=== PATIENT | male | born 1965 | race Caucasian/White ===

== ENCOUNTER 2017-08-04 09:03 | Day surgery (SDC) | payer BC ==
[~2017-08-04] VITALS: Ht 182.9 cm; Wt 94.0 kg
[~2017-08-04 09:03] MED LIST: CIPR500 PO; DICY20 PO; METR500 PO; OMEP20ER PO
[2017-08-04] MEDS ORDERED: Aciphex20 MG (09:18)
[2017-08-04] MEDS ORDERED: Imitrex100 MG (09:18)
== END 2017-08-04 10:57 | disposition home or self-care (01) ==
LOC: ORSCSDS 09:03
PROVIDERS: Internal Medicine Gastroenterology
PROC: 0DB58ZX Excision of Esophagus, Via Natural or Artificial Opening Endoscopic, Diagnostic (ICD-10-PCS; principal; 2017-08-04 10:15)
PROC: 0DB68ZX Excision of Stomach, Via Natural or Artificial Opening Endoscopic, Diagnostic (ICD-10-PCS; principal; 2017-08-04 10:15)
PROC: 0DJD8ZZ Inspection of Lower Intestinal Tract, Via Natural or Artificial Opening Endoscopic (ICD-10-PCS; 2017-08-04 10:15)
DX: K20.9 Esophagitis, unspecified (principal); Z12.11 Encounter for screening for malignant neoplasm of colon; K64.8 Other hemorrhoids; K57.30 Diverticulosis of large intestine without perforation or abscess without bleeding; L53.9 Erythematous condition, unspecified; Z86.010 Personal history of colon polyps; Z87.19 Personal history of other diseases of the digestive system; K21.9 Gastro-esophageal reflux disease without esophagitis; Z79.899 Other long term (current) drug therapy
CPT/HCPCS: 43239; G0105; 88305; 88342; J7120